=== PATIENT | male | born 1990 | race African-American/Black ===

== ENCOUNTER 2019-09-03 06:00 | Emergency (ER) | payer OTHER ==
[~2019-09-03] VITALS: Ht 172.7 cm; Wt 83.5 kg
--- NOTE | 2019-09-03 06:24 | NUR ---
PT BIBS. BODAY ACHE, CHILLS,NASAL CONGESTION AND PRODUCTIVE COUGH X 1 WEEK. PT AAOX4, VSS, BREATHING EVEN AND UNLABORED ON ROOM AIR W/ NAD NOTED. PT CONNECTED TO THE MONITOR AND CONTINOUS POX
--- NOTE | 2019-09-03 06:42 | NUR ---
SWAB SENT TO LAB
[2019-09-03 07:39] VITALS: BP 154/88
--- NOTE | 2019-09-03 07:39 | NUR ---
Patient discharged to home in stable condition. Written and verbal after care instructions given. Patient verbalizes understanding of instruction.
== END 2019-09-03 07:39 | disposition home or self-care (01) ==
LOC: ER 06:07
DX: J32.9 Chronic sinusitis, unspecified (principal); Z60.2 Problems related to living alone